=== PATIENT | male | born 1965 | race Caucasian/White ===

== ENCOUNTER 2023-11-10 23:40 | Emergency (ER) | payer OTHER ==
[~2023-11-10] VITALS: Ht 180.3 cm; Wt 100.0 kg
[2023-11-10 23:42] VITALS: BP 190/113; PULSE 80; RESP 22; TEMP 98.8; O2SAT 98
[2023-11-10] MEDS ORDERED: ONDANSETRON 4MG ODT PO STA (23:46)
[2023-11-11 00:07] LABS: BASOPHILS % 0.7 % (0.0-2.0); HEMATOCRIT. 44.8 % (42.0-52.0); HEMOGLOBIN. 15.3 g/dL (14.0-18.0); LYMPHOCYTES % 22.1 % (20.0-50.0); MEAN CORPUSCULAR HEMOGLOBIN 31.4 pg (28.0-32.0); MEAN CORPUSCULAR HGB CONC 34.1 g/dL (31.0-37.0); MEAN PLATELET VOLUME 7.5 fl (7.4-10.4); MONOCYTES % 8.2 % (2.0-8.0); PLATELET 274 x1000/uL (130-400); RED BLOOD CELL COUNT 4.87 mill/uL (4.7-6.1); RED CELL DISTRIBUTION WIDTH 13.3 % (11.6-14.6); WHITE BLOOD COUNT 10.5 x1000/uL (4.5-11.0)
[2023-11-11 00:15] LABS: CHLORIDE 101 mEq/L (98-107); POTASSIUM 3.7 mEq/L (3.5-5.1); SODIUM 134 mEq/L (136-145)
[2023-11-11 00:16] LABS: CARBON DIOXIDE 24 mEq/L (21-32)
[2023-11-11 00:17] LABS: CALCIUM 9.1 mg/dL (8.7-10.4)
[2023-11-11 00:21] LABS: CREATININE 0.7 mg/dL (0.6-1.3); GLUCOSE 189 mg/dL (70-105); UREA NITROGEN BLOOD 8 mg/dL (9-23)
[2023-11-11] MEDS: ONDANSETRON 4MG ODT PO NR (01:42)
[2023-11-11] MEDS: ONDANSETRON HCL 4MG/2ML INJ IM ONE (01:42)
== END 2023-11-11 02:17 | disposition home or self-care (01) ==
LOC: ER 23:52
DX: R11.2 Nausea with vomiting, unspecified (principal); R10.9 Unspecified abdominal pain; E11.9 Type 2 diabetes mellitus without complications
CPT/HCPCS: 99283; 80048; 85025; 36415; 96372; Q0162; J2405